=== PATIENT | female | born 1955 | race Caucasian/White ===

== ENCOUNTER 2018-05-07 10:43 | Emergency (ER) | payer BC ==
[2018-05-07 10:52] VITALS: BP 128/90
--- NOTE | 2018-05-07 11:05 | ER Report ---
History and Physical Time Seen By MD: 11:05 Hx. of Stated Complaint: RIGHT KNEE PAIN FOR ONE TO TWO WEEKS. NO INJURY RECALLED. HPI/ROS CHIEF COMPLAINT: Right knee pain HISTORY OF PRESENT ILLNESS: 63-year-old female patient presents to emergency room with complaint of right knee pain. Patient states pain seems worse on the medial aspect of the knee. Patient states she's not had any injury to the knee. She states that she is currently working with the [employer] services this summer from [place]. She states that she has not had any fevers, chills, nausea, vomiting or diarrhea. Patient states that she fell twice yesterday when going to clean the bathrooms at [facility]. She states that the pain seems to be worsening every day. Prior to coming out she had a physical by her primary care provider who told her that she had a cyst in her knee. Patient states she's been taking hydrocodone to help with pain especially at night. REVIEW OF SYSTEMS: Respiratory: No cough, no dyspnea. Cardiovascular: No chest pain, no palpitations. Gastrointestinal: No vomiting, no abdominal pain. Musculoskeletal: As noted above. Allergies: Coded Allergies: Penicillins (Verified Allergy, Mild, RASH, 05/07/18) Home Meds Active Scripts Ketorolac Tromethamine (KETOROLAC TROMETHAMINE) 10 Mg Tab, 10 MG PO Q6H, #20 TAB Prov:ANASTASIA ARIAS CAMERON 05/07/18 Past Medical/Surgical History Patient has a past medical history of hypertension, hyperlipidemia, hypothyroidism. Patient has surgical history of cholecystectomy, thyroidectomy. Reviewed Nurses Notes: Yes Constitutional Vital Sign - Last 24 Hours 05/07/18 10:52 Temp 98.0 Pulse 62 Resp 18 B/P (MAP) 128/90 Pulse Ox 94 O2 Delivery Room Air Physical Exam General Appearance: The patient is alert, has no immediate need for airway protection and no current signs of toxicity. ENT: Tympanic membranes are pearly-melton, auditory canals are patent. Respiratory: Chest is non tender, lungs are clear to auscultation. Cardiac: regular rate and rhythm Gastrointestinal: Abdomen is soft and non tender, no masses, bowel sounds normal. Musculoskeletal: Neck: Neck is supple and non tender. Extremities have full range of motion and are non tender. Patient has tenderness to the medial aspect of the right knee. Patient has worsening pain with valgus maneuver. There is no laxity noted in the knee. Patient does have crepitus with movement of the knee. Skin: No rashes or lesions. DIFFERENTIAL DIAGNOSIS: After history and physical exam differential diagnosis was considered for knee contusion, knee sprain, arthritis, tendinitis. Medical Decision Making EKG/Imaging Imaging KNEE 4 VIEW RIGHT Indication: Right knee pain after fall. Comparison: None available Findings: 3 views right knee were obtained. No evidence of fracture, dislocation, or acute osseous abnormality of the right knee. Mild medial tibiofemoral compartment joint space loss. Remaining joint spaces are maintained. No evidence of joint effusion. There is no focal soft tissue abnormality. No evidence of radiopaque foreign body. IMPRESSION: 1.No acute osseous abnormality of the right knee Report Dictated By: Tang Dodson MD at 05/07/2018 12:31 PM Report E-Signed By: Tang Dodson MD at 05/07/2018 12:32 PM ED Course/Re-evaluation ED Course Patient was examined, history and physical were obtained. Differential diagnoses were considered. On examination patient has tenderness to the medial aspect of the right knee, patient had tenderness with the valgus maneuver. An x- ray was done of the right knee which was negative. I discussed the findings with the patient. I do believe the patient does have some tendinitis to the knee. We'll go ahead and place her in a knee immobilizer. We will start her on an anti-inflammatory. She is to take her hydrocodone is significant for pain which has. She is to follow-up with her primary care provider upon returning to [place]. If she has pain that persists I would like her to follow-up with orthopedics here in [place]. I discussed this with patient and her mother they verbalized understanding and agreement with plan. Decision to Disposition Date: May 07, 2018 Decision to Disposition Time: 12:46 Depart Departure Latest Vital Signs Vital Signs Date Time Temp Pulse Resp B/P (MAP) Pulse Ox O2 Delivery O2 Flow Rate FiO2 05/07/18 10:52 98.0 62 18 128/90 94 Room Air Impression: Primary Impression: Knee tendinitis Condition: Improved Disposition: HOME OR SELF-CARE New Scripts Ketorolac Tromethamine (KETOROLAC TROMETHAMINE) 10 Mg Tab 10 MG PO Q6H, #20 TAB Prov: ANASTASIA ARIAS SENIOR PATROL AGENT 05/07/18 Patient Instructions: Tendinitis (ED) Additional Instructions: Limit activity by pain. Wear the knee immobilizer when you are active. Get plenty of rest. Ice the knee 2-3 times a day for 10-15 minutes. Return to the ER if condition worsens. If pain persists, I would encourage follow up with an orthopedist. ANASTASIA ARIAS May 07, 2018 11:05
--- NOTE | 2018-05-07 12:36 | RADIOLOGY IMAGING REPORT ---
FACILITY: [facility] - [place], [place] PATIENT NAME: Anay Rizo : 1955 MR: [id number] V: [id number] EXAM DATE: ORDERING PHYSICIAN: ANASTASIA ARIAS TECHNOLOGIST: Location: [facility] Patient: Anay Rizo : 1955 Visit/Account:[id number] Date of Sevice: 05/07/2018 KNEE 4 VIEW RIGHT Indication: Right knee pain after fall. Comparison: None available Findings: 3 views right knee were obtained. No evidence of fracture, dislocation, or acute osseous abnormality of the right knee. Mild medial tibiofemoral compartment joint space loss. Remaining joint spaces are maintained. No evidence of joint effusion. There is no focal soft tissue abnormality. No evidence of radiopaque foreign body. IMPRESSION: 1.No acute osseous abnormality of the right knee Report Dictated By: Tang Dodson MD at 05/07/2018 12:31 PM Report E-Signed By: Tang Dodson MD at 05/07/2018 12:32 PM WSN:[id number]
[2018-05-07] MEDS ORDERED: KETOROLAC TROM 10MG TAB PO ONE (12:45)
[2018-05-07] MEDS ORDERED: KET10 PO (12:52)
== END 2018-05-07 13:15 | disposition home or self-care (01) ==
LOC: ER 11:08
DX: M76.9 Unspecified enthesopathy, lower limb, excluding foot (principal)
CPT/HCPCS: 73564; 99283